=== PATIENT | female | born 1990 | race Caucasian/White ===

== ENCOUNTER 2023-12-13 16:29 | Inpatient (IN) | payer BC ==
[2023-12-13 17:07] VITALS: BMI 26.6
[2023-12-13 17:24] LABS: Fetal Membranes Rupture RUPTURE DETECTED (No Rupture)
[2023-12-13] MEDS ORDERED: Promethazine HCl 25 MG/ML VIAL IM PRN ×2 (19:45→19:46)
[2023-12-13] MEDS ORDERED: Diphenoxylate HCl/Atropine Tablet PO PRN ×2 (19:45→19:46)
[2023-12-13] MEDS ORDERED: Oxytocin 30 units/NS 500 ML 500 ML IV SCH (19:45)
[2023-12-13] MEDS ORDERED: Ondansetron PF 4 MG/2 ML Vial IVP PRN (19:45)
[2023-12-13] MEDS ORDERED: Methylergonovine 0.2 MG/ML VIAL IM PRN ×2 (19:45→19:46)
[2023-12-13] MEDS ORDERED: Misoprostol 200 MCG TAB PR PRN ×2 (19:45→19:46)
[2023-12-13] MEDS ORDERED: hydrALAZINE 20 MG/ML VIAL SLOW IVP PRN ×2 (19:45→19:46)
[2023-12-13] MEDS ORDERED: Carboprost 250 MCG/ML AMP IM PRN ×2 (19:45→19:46)
[2023-12-13] MEDS ORDERED: Tranexamic Acid 1,000 MG/10 ML VIAL IVP PRN (19:45)
[2023-12-13] MEDS ORDERED: fentaNYL 50 mcg/mL 1 mL Vial SLOW IVP PRN ×2 (19:45→19:46)
[2023-12-13] MEDS ORDERED: Lactated Ringer's 1,000 ML IV SCH ×2 (19:45→20:00)
[2023-12-13] MEDS ORDERED: Acetaminophen 500 MG TAB PO PRN (19:46)
[2023-12-13] MEDS ORDERED: Ibuprofen 800 MG TAB PO PRN ×2 (19:46→19:47)
[2023-12-13] MEDS ORDERED: Zolpidem Tartrate 5 MG TAB PO PRN (19:46)
[2023-12-13] MEDS ORDERED: HYDROcodone/Acetaminophen 5/325 mg Tablet PO PRN ×2 (19:46→19:47)
[2023-12-13] MEDS ORDERED: Lidocaine 1% (PF) 30 ML VIAL SC PRN ×2 (19:46→19:47)
[2023-12-13 20:04] LABS: Hematocrit 33.3 % (34.9-44.5); Hemoglobin 11.1 g/dL (12.0-15.5); Mean Corpuscular HGB CONC 33.3 g/dL (32.0-36.0); Mean Corpuscular Hemoglobin 32.6 pg (27.0-33.0); Mean Corpuscular Volume 97.9 fL (81.6-98.3); Platelet Count 240 10x3/uL (150-450); RBC Distribution Width 12.9 % (11.5-14.5); White Blood Cell (WBC) Count 12.2 10x3/uL (3.5-10.5)
[2023-12-13 20:40] LABS: Syphilis Antibody Nonreactive (Nonreactive); Syphilis Antibody Index 0.07 S/CO (<1.00 Non-Reactive)
[2023-12-13 20:41] LABS: HBsAg Index 0.19 S/CO (0-0.99); Hep B Surf Ag - L&D Non-Reactive S/CO (NonReactive)
[2023-12-14] MEDS: Oxytocin 30 units/NS 500 ML 500 ML IV SCH ×2 (00:08→20:18)
[2023-12-14] MEDS: Calcium Carbonate 500 MG ChewTAB PO PRN (00:35)
[2023-12-14] MEDS: Ondansetron PF 4 MG/2 ML Vial IVP PRN (10:44)
[2023-12-14] MEDS ORDERED: fentaNYL 50 mcg/mL 1 mL Vial SLOW IVP PRN (17:59)
[2023-12-14] MEDS ORDERED: HYDROmorphone 0.5 MG/0.5 ML SYRINGE SLOW IVP PRN (17:59)
[2023-12-14] MEDS ORDERED: Naloxone HCl 0.4 mg/ml Vial IV PRN (17:59)
[2023-12-14] MEDS ORDERED: Ondansetron PF 4 MG/2 ML Vial IVP PRN ×3 (17:59→22:48)
[2023-12-14] MEDS ORDERED: Naloxone HCl 0.4 mg/ml Vial IVP PRN ×2 (17:59)
[2023-12-14] MEDS ORDERED: Meperidine HCl/PF 25 MG (1 mL) VIAL SLOW IVP PRN (17:59)
[2023-12-14] MEDS ORDERED: Promethazine HCl 25 MG/ML VIAL IM PRN ×2 (17:59→22:48)
[2023-12-14] MEDS ORDERED: Communication Order-Pharmacy FS SCH (18:00)
[2023-12-14] MEDS ORDERED: Ketorolac Tromethamine 30 MG (1 mL) VIAL IVP SCH (18:00)
[2023-12-14] MEDS: diphenhydrAMINE 50 MG/ML VIAL IVP PRN (20:19)
[2023-12-14] MEDS ORDERED: diphenhydrAMINE 25 MG CAP PO PRN (22:48)
[2023-12-14] MEDS ORDERED: Lanolin Ointment 7 GM TUBE TOP PRN (22:48)
[2023-12-14] MEDS ORDERED: Acetaminophen 325 MG TAB PO PRN (22:48)
[2023-12-14] MEDS ORDERED: Bisacodyl 10 MG SUPP PR PRN (22:48)
[2023-12-14] MEDS ORDERED: hydrALAZINE 20 MG/ML VIAL SLOW IVP PRN (22:48)
[2023-12-14] MEDS: CEFAZOLIN 2 GM VIAL ONE (23:21)
[2023-12-14] MEDS: Azithromycin 500 MG VIAL ONE (23:21)
[2023-12-14] MEDS: fentaNYL 50 mcg/mL 1 mL Vial ONE (23:22)
[2023-12-14] MEDS: Erythromycin Base 0.5% Oint 1 GM TUBE ONE (23:22)
[2023-12-14] MEDS: Phenylephrine 40 MG/NS 250 ML 250 ML ONE (23:22)
[2023-12-14] MEDS: Ondansetron PF 4 MG/2 ML Vial ONE (23:22)
[2023-12-14] MEDS: ePHEDrine Sulfate 50 MG/10 ML VIAL ONE (23:22)
[2023-12-14] MEDS: Dexamethasone 10 MG/ML VIAL ONE (23:22)
[2023-12-14] MEDS: Phytonadione Neonatal 1 MG/0.5 ML AMP ONE (23:22)
[2023-12-14] MEDS: Oxytocin 10 UNITS/ML VIAL ONE (23:22)
[2023-12-14] MEDS: Morphine PF 10 MG/10 ML VIAL ONE (23:22)
[2023-12-14] MEDS: Docusate 100 MG CAP PO SCH (23:23)
[2023-12-14] MEDS: Ferrous Sulfate 325 MG TAB PO SCH (23:23)
[2023-12-15] MEDS: Moisturizing Cream (Eucerin) 113 GM JAR TOP PRN (00:23)
[2023-12-15] MEDS: Ketorolac Tromethamine 30 MG (1 mL) VIAL IVP PRN (03:23)
[2023-12-15 04:21] LABS: Hematocrit 30.8 % (34.9-44.5); Hemoglobin 10.4 g/dL (12.0-15.5); Mean Corpuscular HGB CONC 33.8 g/dL (32.0-36.0); Mean Corpuscular Hemoglobin 32.8 pg (27.0-33.0); Mean Corpuscular Volume 97.2 fL (81.6-98.3); Mean Platelet Volume 8.4 fL (7.4-10.4); Platelet Count 212 10x3/uL (150-450); RBC Distribution Width 12.7 % (11.5-14.5); Red Blood Cell (RBC) Count 3.17 10x6/uL (3.90-5.03); White Blood Cell (WBC) Count 17.4 10x3/uL (3.5-10.5)
[2023-12-15] MEDS ORDERED: HYDROcodone/Acetaminophen 5/325 mg Tablet PO PRN (06:00)
[2023-12-15] MEDS: Ferrous Sulfate 325 MG TAB PO SCH (07:31)
[2023-12-15] MEDS: Docusate 100 MG CAP PO SCH (08:26)
[2023-12-15] MEDS: Prenatal Vitamin 1 TAB PO SCH (08:26)
[2023-12-15] MEDS: HYDROcodone/Acetaminophen 5/325 mg Tablet PO PRN (08:26)
[2023-12-15] MEDS: Ibuprofen 800 MG TAB PO SCH (21:52)
[2023-12-15] MEDS: Simethicone Chewable 80 MG TAB PO PRN (21:52)
[2023-12-17] MEDS: Boostrix 0.5 ML (Tdap) VIAL (>/=7 yrs of age) IM ONE (03:59)
[2023-12-17 08:02] VITALS: BP 120/75; TEMP 97.9
== END 2023-12-17 13:00 | disposition home or self-care (01) | DRG 788 ==
LOC: CSHLD/OP 16:29 → CSHLD 17:39 → CSHPP 12-14 22:24
PROVIDERS: ADMIT Student in an Organized Health Care Education/Training Program; ATTEND Student in an Organized Health Care Education/Training Program
PROC: 10D00Z1 Extraction of Products of Conception, Low, Open Approach (ICD-10-PCS; principal; 2023-12-14)
DX: O34.211 Maternal care for low transverse scar from previous cesarean delivery (principal); Z3A.38 38 weeks gestation of pregnancy; Z37.0 Single live birth; Z79.82 Long term (current) use of aspirin; Z88.2 Allergy status to sulfonamides
CPT/HCPCS: 36415; 51702; 84112; 85027; 86780; 86850; 86900; 86901; 87340; 99285; J1100; J1200; J1885; J2274; J2405; J2590; J3010